=== PATIENT | female | born 2000 | race Caucasian/White ===

== ENCOUNTER 2020-01-27 01:06 | Emergency (ER) | payer OTHER ==
[~2020-01-27] VITALS: Ht 157 cm; Wt 56.8 kg
--- NOTE | 2020-01-27 01:21 | ED Chest Pain ---
General Stated Complaint: CP, N/V Source: patient History of Present Illness Date Seen by Provider: Jan 27, 2020 Time Seen by Provider: 01:21 Initial Comments 19-year-old female presents with chest pain and vomiting. Patient reports the chest pain started after celebrating with her friends. She reports she had vodka , Adderall and cocaine. Patient reports that today she's had chest pain and vomiting. At that chest pain returns every time she vomits. She gets some mild shortness of breath due to the vomiting chest pain. She denies any fevers chills. She denies any other systemic complaints. Allergies and Home Medications Allergies Coded Allergies: ondansetron (Verified Allergy, Intermediate, Hives, 01/27/20) Home Medications Nitrofurantoin Macrocrystal 100 Mg Capsule, 100 MG PO BID Prescribed by: LIMA SOUZA on 01/27/20 0234 Patient Home Medication List Home Medication List Reviewed: Yes Review of Systems Review of Systems Constitutional: No chills, No fever EENTM: No Symptoms Reported Respiratory: See HPI Cardiovascular: See HPI, Chest Pain Gastrointestinal: Denies Abdominal Pain; Nausea, Vomiting Genitourinary: No Symptoms Reported Musculoskeletal: no symptoms reported Skin: no symptoms reported Past [id number]-[id number] Hx Past Med/Social Hx: Reviewed Nursing Past Med/Soc Hx Patient Social History Recent Foreign Travel: No Contact w/Someone Who Travel: No Physical Exam Vital Signs Vital Signs - First Documented 01/27/20 01:20 Temp 36.6 Pulse 110 Resp 20 B/P (MAP) 146/113 O2 Delivery Room Air Capillary Refill : Height, Weight, BMI Height: '" Weight: lbs. oz. kg; BMI Method: General Appearance: No Apparent Distress, WD/WN Respiratory: Chest Non Tender, Lungs Clear, Normal Breath Sounds Cardiovascular: Regular Rate, Rhythm, No Edema Gastrointestinal: Non Tender, Soft Extremity: Normal Capillary Refill, Non Tender Neurologic/Psychiatric: Alert, Oriented x3, amusement park worker II-XII Norm as Tested Skin: Normal Color, Warm/Dry Progress/Results/Core Measures Results/Orders Lab Results Laboratory Tests Test 01/27/20 01:18 Range/Units White Blood Count 12.6 H 4.3-11.0 10^3/uL Red Blood Count 4.52 4.35-5.85 10^6/uL Hemoglobin 14.1 11.5-16.0 G/DL Hematocrit 40 35-52 % Mean Corpuscular Volume 89 80-99 FL Mean Corpuscular Hemoglobin 31 25-34 PG Mean Corpuscular Hemoglobin Concent 35 32-36 G/DL Red Cell Distribution Width 13.4 10.0-14.5 % Platelet Count 365 130-400 10^3/uL Mean Platelet Volume 9.4 7.4-10.4 FL Neutrophils (%) (Auto) 73 42-75 % Lymphocytes (%) (Auto) 19 12-44 % Monocytes (%) (Auto) 6 0-12 % Eosinophils (%) (Auto) 1 0-10 % Basophils (%) (Auto) 1 0-10 % Neutrophils # (Auto) 9.3 H 1.8-7.8 X 10^3 Lymphocytes # (Auto) 2.5 1.0-4.0 X 10^3 Monocytes # (Auto) 0.8 0.0-1.0 X 10^3 Eosinophils # (Auto) 0.1 0.0-0.3 10^3/uL Basophils # (Auto) 0.1 0.0-0.1 10^3/uL Urine Color YELLOW Urine Clarity SL CLOUDY Urine pH 5.5 5-9 Urine Specific [place] >=1.030 1.016-1.022 Urine Protein NEGATIVE NEGATIVE Urine Glucose (UA) NEGATIVE NEGATIVE Urine Ketones 3+ H NEGATIVE Urine Nitrite NEGATIVE NEGATIVE Urine Bilirubin 2+ H NEGATIVE Urine Urobilinogen 0.2 < = 1.0 MG/DL Urine Leukocyte Esterase NEGATIVE NEGATIVE Urine RBC (Auto) 2+ H NEGATIVE Urine RBC 5-10 H /HPF Urine WBC RARE /HPF Urine Squamous Epithelial Cells 5-10 /HPF Urine Crystals NONE /LPF Urine Bacteria MODERATE H /HPF Urine Casts NONE /LPF Urine Mucus MODERATE H /LPF Urine Yeast FEW H /HPF Urine Culture Indicated YES Sodium Level 139 135-145 MMOL/L Potassium Level 3.6 3.6-5.0 MMOL/L Chloride Level 102 98-107 MMOL/L Carbon Dioxide Level 19 L 21-32 MMOL/L Anion Gap 18 H 5-14 MMOL/L Blood Urea Nitrogen 10 7-18 MG/DL Creatinine 0.83 0.60-1.30 MG/DL Estimat Glomerular Filtration Rate > 60 BUN/Creatinine Ratio 12 Glucose Level 83 70-105 MG/DL Calcium Level 10.1 8.5-10.1 MG/DL Corrected Calcium 8.5-10.1 MG/DL Magnesium Level 2.3 1.6-2.4 MG/DL Total Bilirubin 2.0 H 0.1-1.0 MG/DL Aspartate Amino Transf (AST/SGOT) 26 5-34 U/L Alanine Aminotransferase (ALT/SGPT) 13 0-55 U/L Alkaline Phosphatase 82 40-136 U/L Troponin I < 0.028 <0.028 NG/ML Total Protein 8.3 H 6.4-8.2 GM/DL Albumin 4.9 H 3.2-4.5 GM/DL Urine Opiates Screen NEGATIVE NEGATIVE Urine Oxycodone Screen NEGATIVE NEGATIVE Urine Methadone Screen NEGATIVE NEGATIVE Urine Propoxyphene Screen NEGATIVE NEGATIVE Urine Barbiturates Screen NEGATIVE NEGATIVE Ur Tricyclic Antidepressants Screen NEGATIVE NEGATIVE Urine Phencyclidine Screen NEGATIVE NEGATIVE Urine Amphetamines Screen POSITIVE H NEGATIVE Urine Methamphetamines Screen NEGATIVE NEGATIVE Urine Benzodiazepines Screen NEGATIVE NEGATIVE Urine Cocaine Screen POSITIVE H NEGATIVE Urine Cannabinoids Screen NEGATIVE NEGATIVE Serum Alcohol 14 H <10 MG/DL My Orders Orders - SOUZA,LIMA L DO Alcohol (01/27/20:) Cbc With Automated Diff (01/27/20:) Comprehensive Metabolic Panel (01/27/20) Magnesium (01/27/20:) Troponin I (01/27/20:) Ua Culture If Indicated (01/27/20) Promethazine Injection (Phenergan Injec (01/27/20:) Ns Iv 1000 Ml (Sodium Chloride 0.9%) (01/27/20:27) Ed Iv/Invasive Line Start (01/27/20:27) Drug Screen Stat (Urine) (01/27/20:27) Urine Bedside (01/27/20:20) Urine Culture (01/27/20 01:18) Vital Signs/I&O 01/27/20:20 Temp 36.6 Pulse 110 Resp 20 B/P (MAP) 146/113 O2 Delivery Room Air Progress Progress Note : Time: 02:35 Progress Note Patient stable throughout his stay. Patient had the sensation that she was aware of and taking medication [id number] for. She also has a cystitis. I'll prescribe her Macrobid. Patient is otherwise stable and will be discharged home. Departure Impression Primary Impression: Cocaine abuse Additional Impressions: Chest pain Qualified Codes: R07.9 - Chest pain, unspecified Nausea & vomiting Qualified Codes: R11.2 - Nausea with vomiting, unspecified Cystitis Disposition: HOME, SELF-CARE Condition: Stable Departure-Patient Inst. Referrals: NO,LOCAL PHYSICIAN (PCP/Family) Primary Care Physician Patient Instructions: Nausea and Vomiting, Adult, Urinary Tract Infection, Adul t (DC), Drug Abuse and Drug Addiction (DC) Add. Discharge Instructions: Emergency department focuses on treating and ruling out life-threatening diseases. Whenever possible, a diagnosis is given. However, most patients are given an impression based on their history, physical exam, and workup during your brief time in the ER. Information about probable diagnosis and other educational material has been provided. Please take the time to read and understand this information. It is very important that you follow up with a physician as discussed during the visit today. Failure to adhere to your follow-up instructions may lead to severe disability, injury, or so please make sure to keep your appointments or obtain one as requested. Please keep in mind the emergency department is not designed to your primary care or "family doctor" and nonurgent issues are best evaluated by an outpatient physician Scripts Nitrofurantoin Macrocrystal (Nitrofurantoin) 100 Mg Capsule 100 MG PO BID, #10 CAP 0 Refills Prov: LIMA SOUZA DO 01/27/20 LIMA SOUZA DO Jan 27, 2020 01:21
[2020-01-27] MEDS ORDERED: NS IV 1000 ML 1,000 ML IV STA (01:27)
[2020-01-27] MEDS ORDERED: PROMETHAZINE INJ 25 MG/ML (PHENERGAN) AMP IVP STA (01:27)
[2020-01-27 01:40] LABS: BASOPHILS # (AUTO) 0.1 10^3/uL (0.0-0.1); BASOPHILS % (AUTO) 1 % (0-10); BILIRUBIN,URINE 2+ (NEGATIVE); CLARITY,URINE SL CLOUDY; COLOR,URINE YELLOW; EOSINOPHILS # (AUTO) 0.1 10^3/uL (0.0-0.3); EOSINOPHILS % (AUTO) 1 % (0-10); GLUCOSE, URINE (UA) NEGATIVE (NEGATIVE); HEMATOCRIT 40 % (35-52); HEMOGLOBIN 14.1 G/DL (11.5-16.0); KETONES,URINE 3+ (NEGATIVE); LEUKOCYTE ESTERASE ,URINE NEGATIVE (NEGATIVE); LYMPHOCYTES # (AUTO) 2.5 X 10^3 (1.0-4.0); LYMPHOCYTES % (AUTO) 19 % (12-44); MEAN CORPUSCULAR HEMOGLOBIN 31 PG (25-34); MEAN CORPUSCULAR HGB CONC 35 G/DL (32-36); MEAN CORPUSCULAR VOLUME 89 FL (80-99); MEAN PLATELET VOLUME 9.4 FL (7.4-10.4); MONOCYTES # (AUTO) 0.8 X 10^3 (0.0-1.0); MONOCYTES % (AUTO) 6 % (0-12); NEUTROPHILS # (AUTO) 9.3 X 10^3 (1.8-7.8); NEUTROPHILS % (AUTO) 73 % (42-75); NITRITE,URINE NEGATIVE (NEGATIVE); PH,URINE 5.5 (5-9); PLATELET COUNT 365 10^3/uL (130-400); PROTEIN,URINE NEGATIVE (NEGATIVE); RED CELL DISTRIBUTION WIDTH 13.4 % (10.0-14.5); WHITE BLOOD COUNT 12.6 10^3/uL (4.3-11.0)
[2020-01-27 01:57] LABS: BACTERIA,URINE MODERATE /HPF; WBC,URINE RARE /HPF
[2020-01-27 01:58] LABS: YEAST,URINE FEW /HPF
[2020-01-27 02:00] LABS: AMPHETAMINE SCREEN, URINE POSITIVE (NEGATIVE); BARBITURATE SCREEN URINE NEGATIVE (NEGATIVE); BENZODIAZEPINES SCREEN URINE NEGATIVE (NEGATIVE); CANNABINOID SCREEN, URINE NEGATIVE (NEGATIVE); COCAINE SCREEN URINE POSITIVE (NEGATIVE); METHADONE STAT NEGATIVE (NEGATIVE); METHAMPHETAMINE SCREEN URINE S NEGATIVE (NEGATIVE); OPIATE SCREEN URINE NEGATIVE (NEGATIVE); OXYCODONE STAT NEGATIVE (NEGATIVE); PROPOXYPHENE STAT NEGATIVE (NEGATIVE); TRICYCLIC ANTIDEPRESSANTS SCRE NEGATIVE (NEGATIVE)
[2020-01-27 02:18] LABS: ALANINE AMINOTRANSFERASE 13 U/L (0-55); ALBUMIN 4.9 GM/DL (3.2-4.5); ALKALINE PHOSPHATASE 82 U/L (40-136); BUN/CREATININE RATIO 12; CALCIUM 10.1 MG/DL (8.5-10.1); CARBON DIOXIDE 19 MMOL/L (21-32); CHLORIDE 102 MMOL/L (98-107); CREATININE SERUM 0.83 MG/DL (0.60-1.30); GFR ESTIMATED > 60; GLUCOSE 83 MG/DL (70-105); MAGNESIUM 2.3 MG/DL (1.6-2.4); POTASSIUM 3.6 MMOL/L (3.6-5.0); SODIUM 139 MMOL/L (135-145); TOTAL PROTEIN 8.3 GM/DL (6.4-8.2)
[2020-01-27] MEDS ORDERED: NITR100C PO (02:34)
[2020-01-27 02:43] VITALS: BP 120/84
== END 2020-01-27 02:44 | disposition home or self-care (01) ==
LOC: ER 01:09
DX: F14.10 Cocaine abuse, uncomplicated (principal); R07.9 Chest pain, unspecified; R11.2 Nausea with vomiting, unspecified; N30.90 Cystitis, unspecified without hematuria; Z88.8 Allergy status to other drugs, medicaments and biological substances
CPT/HCPCS: 36415; 80053; 80306; 80320; 81000; 83735; 84484; 84703; 85025; 87088